=== PATIENT | male | born 1950 | race Caucasian/White ===

== ENCOUNTER → 2021-01-26 | Outpatient (CLI) | payer MEDICARE, OTHER ==
[~2021-01-26] MED LIST: AZITHROMYCIN250 MG PO; BACITRACIN3.5 GM OP; CHLORTHALIDONE25 MG PO; FISH OIL 1,0001 EAC1 PO; FLECAINIDE ACE150 MG PO; HYDRALAZINE HCL25 MG PO; HYDROCODON-ACE1 EAC1 PO; HYDROCODONE-AC1 EAC1 PO; HYDROXYUREA500 MG PO; LISINOPRIL40 MG PO; LYRICA 75 MG CA75 MG PO; RIVAROXABAN PO; SYNTHROID88 MCG PO; TYLENOL PM EX-1 EACH PO
[2021-01-26 12:59] LABS: HEMOGLOBIN 11.7 gm/dl (14.0-17.5); RED BLOOD COUNT 6.08 M/UL (4.20-5.50); WHITE BLOOD COUNT 20.7 K/UL (4.5-11.0)
== END ==
LOC: OPSV2 11:45
PROVIDERS: Orthopaedic Surgery
DX: G56.02 Carpal tunnel syndrome, left upper limb (principal)
CPT/HCPCS: 80048; 85027; 93005

== ENCOUNTER → 2021-02-09 | Day surgery (SDC) | payer MEDICARE, OTHER ==
[~2021-02-09] VITALS: Ht 185.4 cm; Wt 89.8 kg
== END | disposition home or self-care (01) ==
LOC: OR 05:45
DX: G56.02 Carpal tunnel syndrome, left upper limb (principal); I11.9 Hypertensive heart disease without heart failure; E07.9 Disorder of thyroid, unspecified; I48.91 Unspecified atrial fibrillation; Z79.01 Long term (current) use of anticoagulants; Z79.899 Other long term (current) drug therapy
CPT/HCPCS: J0690; J1100; J2001; J2405; J2704; J3010; J7120

== ENCOUNTER 2021-02-15 16:37 | Emergency (ER) | payer MEDICARE, OTHER ==
[~2021-02-15 16:37] MED LIST changes: -HYDROCODON-ACE1 EAC1 PO; -HYDROCODONE-AC1 EAC1 PO
[2021-02-15] MEDS ORDERED: HYDROCODONE-AC1 EAC1 PO (20:27)
[2021-02-15] MEDS ORDERED: HYDROCODON-ACE1 EAC1 PO (20:44)
== END 2021-02-15 20:55 | disposition home or self-care (01) ==
LOC: ER1 16:37
DX: M25.532 Pain in left wrist (principal); Z90.89 Acquired absence of other organs
CPT/HCPCS: 96372; 99283; J1885; J2270; J2405

== ENCOUNTER 2021-02-16 00:07 | Emergency (ER) | payer MEDICARE, OTHER ==
[~2021-02-16 00:07] MED LIST changes: +HYDROCODON-ACE1 EAC1 PO; +HYDROCODONE-AC1 EAC1 PO
[2021-02-16 01:25] LABS: HEMOGLOBIN 11.7 gm/dl (14.0-17.5); RED BLOOD COUNT 5.99 M/UL (4.20-5.50); WHITE BLOOD COUNT 17.3 K/UL (4.5-11.0)
== END 2021-02-16 05:32 | disposition home or self-care (01) ==
LOC: ER1 00:07
PROVIDERS: Internal Medicine
DX: G56.02 Carpal tunnel syndrome, left upper limb (principal); I10 Essential (primary) hypertension
CPT/HCPCS: 80053; 85025; 96374; 96375; 96376; 99283; J1170; J3010

== ENCOUNTER 2021-11-05 13:49 | Inpatient (IN) | payer OTHER, MEDICARE ==
[~2021-11-05] VITALS: Ht 185.4 cm; Wt 88.5 kg
[~2021-11-05 13:49] MED LIST changes: -RIVAROXABAN PO; +XARELTO20 MG PO
[2021-11-05 14:36] LABS: HEMOGLOBIN 12.8 gm/dl (14.0-17.5); RED BLOOD COUNT 5.46 M/UL (4.20-5.50); WHITE BLOOD COUNT 11.4 K/UL (4.5-11.0)
[2021-11-05 15:04] LABS: BUN/CREATININE RATIO 19 (0-10)
[2021-11-05] MEDS ORDERED: POTASSIUM CHLO10 ME1 PO (21:53)
[2021-11-06 05:45] LABS: RED BLOOD COUNT 5.17 M/UL (4.20-5.50)
[2021-11-06 06:19] LABS: BUN/CREATININE RATIO 16 (0-10)
[2021-11-07 07:23] LABS: HEMOGLOBIN 11.8 gm/dl (14.0-17.5); RED BLOOD COUNT 5.15 M/UL (4.20-5.50); WHITE BLOOD COUNT 9.5 K/UL (4.5-11.0)
[2021-11-07 07:57] LABS: BUN/CREATININE RATIO 17 (0-10)
[2021-11-08 07:39] LABS: HEMOGLOBIN 11.8 gm/dl (14.0-17.5); RED BLOOD COUNT 5.18 M/UL (4.20-5.50); WHITE BLOOD COUNT 10.1 K/UL (4.5-11.0)
[2021-11-08 07:57] LABS: BUN/CREATININE RATIO 19 (0-10)
[2021-11-09 04:55] LABS: HEMOGLOBIN 12.2 gm/dl (14.0-17.5); RED BLOOD COUNT 5.36 M/UL (4.20-5.50); WHITE BLOOD COUNT 9.7 K/UL (4.5-11.0)
[2021-11-10 10:42] LABS: RED BLOOD COUNT 5.62 M/UL (4.20-5.50); WHITE BLOOD COUNT 14.5 K/UL (4.5-11.0)
[2021-11-10] MEDS ORDERED: CLEOCIN HCL300 MG PO (17:39)
[2021-11-10] MEDS ORDERED: PERCOCET 5/325 T1 EA PO (17:39)
== END 2021-11-10 19:30 | disposition home or self-care (01) | DRG 603 ==
LOC: ER1 13:49 → CDU 18:36 → M/S 18:36
PROVIDERS: Internal Medicine; Nurse Practitioner; Physician Assistant; ADMIT Internal Medicine
DX: L03.116 Cellulitis of left lower limb (principal); I10 Essential (primary) hypertension; R73.9 Hyperglycemia, unspecified; Z20.822 Contact with and (suspected) exposure to COVID-19; E03.9 Hypothyroidism, unspecified; I49.5 Sick sinus syndrome; I48.0 Paroxysmal atrial fibrillation; D45 Polycythemia vera; Z95.0 Presence of cardiac pacemaker; Z79.899 Other long term (current) drug therapy; Z85.828 Personal history of other malignant neoplasm of skin; Z80.42 Family history of malignant neoplasm of prostate; Z84.1 Family history of disorders of kidney and ureter
CPT/HCPCS: 36415; 73590; 80048; 80053; 81001; 82550; 82553; 83036; 83605; 83735; 85025; 85027; 85610; 85652; 85730; 86140; 87040; 93926; 93971; 96374; 96375; 97161; 99284; J1170; J2270; J2405; J7030; Q9967; U0002